=== PATIENT | male | born 1970 | race Caucasian/White ===

== ENCOUNTER → 2016-09-04 | Outpatient (CLI) | payer OTHER ==
[~2016-09-04] MED LIST: 'XANAX1 MG PO; ACETAMINOPHEN-O1 TAB PO; AUGMENTIN 875875 MG PO; CLONAZEPAM1 MG PO; FLUOXETINE HCL40 MG PO; HYDROCODONE BIT1 T11 PO; LOSARTAN POTASS50 M1 PO; PRAVACHOL20 MG PO; ULTRAM50 MG PO
[2016-09-04 10:27] LABS: BUN 9 mg/dl (7-24); CARBON DIOXIDE 31 mmol/L (21-32); CHLORIDE 107 mmol/L (98-107); CHOLESTEROL 190 mg/dL (<200); CPK 163 U/L (39-308); EST GLOM FILT AFRICAN AMERICAN > 60 ml/min; GLUCOSE 79 mg/dL (65-99); HDL CHOLESTEROL 94 mg/dl (40-60); LDL CHOLESTEROL 85 mg/dL (9-159); POTASSIUM 5.3 mmol/L (3.5-5.1); SODIUM 145 mmol/L (136-145); TRIGLYCERIDES 57 mg/dl (<150); VLDL CHOLESTEROL 11 mg/dL (6-40)
== END | disposition home or self-care (01) ==
LOC: LAB 09:31
PROVIDERS: Family Medicine
DX: E78.00 Pure hypercholesterolemia, unspecified (principal)

== ENCOUNTER 2018-03-23 19:07 | Emergency (ER) | payer OTHER ==
[~2018-03-23] VITALS: Ht 185.4 cm; Wt 97.5 kg
[2018-03-23] VITALS (8 sets, daily range): BP systolic 105–152; BP diastolic 46–97
--- NOTE | ~2018-03-23 | EKG ---
[place], [place] ELECTROCARDIOGRAM REPORT NAME: JENNIFFER ARGUELLES UNIT #: [id number] ROOM: DOCTOR: [facility] DRAFT REPORT BIRTHDATE: [birth year] [facility] Test Date: 2018-03-23 Test Time: 19:42:41 Pat Name: JENNIFFER ARGUELLES Department: Room: [facility] Gender: M Hotel Clerk: ROSAMARIA : 1970 Requested By: DEANDRE DESAI Order Number: [id number] Reading MD: Guilherme King MD Measurements Intervals [place] Rate: 84 P: -7 RI: 178 QRS: -25 QRSD: 101 T: 36 QT: 399 QTc: 472 Interpretive Statements Sinus rhythm Probable left atrial enlargement Inferior infarct, old Abnormal T, consider ischemia, anterior leads Electronically Signed On 03-24-2018 16:17:08 PST by Guilherme King MD CM:EKGRPT:ELECTROCARDIOGRAM REPORT [id number] DEANDRE YUEN DRAFT REPORT DEANDRE DESAI DO
[2018-03-23 19:33] LABS: BASO % 0.3 % (0.0-1.0); EOS % 0.7 % (1.0-4.0); HEMATOCRIT 41.5 % (42.0-52.0); HEMOGLOBIN 14.4 g/dl (14.0-18.0); LYMPH # 1.1 10*3/uL (1.3-4.4); LYMPH % 17.4 % (27.0-41.0); MEAN CELL VOLUME 92.6 fl (80.0-94.0); MEAN CORPUSCULAR HGB 32.1 pg (27.0-31.0); MEAN CORPUSCULAR HGB CONC 34.7 g/dl (33.0-37.0); MEAN PLATELET VOLUME 8.8 fl (9.6-12.3); MONO # 0.7 10*3/uL (0.1-1.0); MONO % 12.1 % (3.0-9.0); NEUT # 4.3 10*3/uL (2.3-7.9); NEUT % 69.2 % (47.0-73.0); PLATELET COUNT AUTOMATED 172 10*3/uL (130-400); RED BLOOD COUNT 4.48 10*6/uL (4.50-5.90); RED CELL DISTRI WIDTH 12.6 % (0-14.5); WHITE BLOOD COUNT 6.1 10*3/uL (4.8-10.8)
[2018-03-23 19:50] LABS: ALBUMIN 3.7 gm/dl (3.1-4.5); ALKALINE PHOSPHATASE 54 U/L (45-117); BUN 11 mg/dl (7-24); CHLORIDE 103 mmol/L (98-107); CREATININE 0.99 mg/dL (0.70-1.30); POTASSIUM 3.6 mmol/L (3.5-5.1); SGOT/AST 46 IU/L (3-35); SGPT/ALT 40 U/L (12-78); SODIUM 139 mmol/L (136-145); TOTAL PROTEIN 7.9 gm/dL (6.4-8.2)
[2018-03-23 19:54] LABS: ACETAMINOPHEN (TYLENOL) < 5.0 ug/ml (10-30); ETHYL ALCOHOL < 3.0 mg/dl (<3); TROPONIN I < 0.015 ng/ml (<0.045)
--- NOTE | 2018-03-23 20:00 | NUR ---
PATIENT STATES THAT HE IS UNABLE TO PROVIDE URINE SAMPLE AT THIS TIME
[2018-03-23] MEDS ORDERED: PRAVACHOL40 MG PO (20:51)
[2018-03-23] MEDS ORDERED: ZOLOFT100 MG PO (20:51)
[2018-03-23] MEDS ORDERED: KLONOPIN2 M1 PO (20:52)
--- NOTE | 2018-03-23 21:20 | NUR ---
PATIENT STATES THAT HE STILL IS UNABLE TO PROVIDE A URINE SAMPLE FOR BOTH PHYSICIAN ORDERED DRUG SCREEN AND ALSO WORKERS COMP DRUG SCREEN. HE IS PROVIDED WITH MORE ICE WATER.
--- NOTE | 2018-03-23 21:30 | NUR ---
LUX RN ON 5E NOTIFIED OF PATIENT DELAY TO ROOM D/T INABILITY TO PROVIDE URINE SAMPLE FOR WORKERS COMP DRUG TESTING
--- NOTE | 2018-03-23 22:23 | NUR ---
WITNESSED TONIC CLONIC SEIZURE ACTIVITY
[2018-03-23 22:43] LABS: URINE AMPHETAMINES < 1000 (1000ng/ml); URINE BARBITURATES < 200 (200ng/ml); URINE BENZODIAZEPINES > 200 (200ng/ml); URINE CANNABINOIDS (THC) < 50 (50ng/ml); URINE COCAINE < 300 (300ng/ml); URINE METHADONE < 300 (300ng/ml); URINE OPIATES > 300 (300ng/ml)
[2018-03-23 22:45] LABS: URINE PHENCYCLIDINE < 25 (25ng/ml)
--- NOTE | 2018-03-24 00:40 | NUR ---
PATIENT EXWIFE HERE WITH DAUGHTER TO TAKE THEN PATIENT HOME
== END 2018-03-24 00:51 | disposition home or self-care (01) ==
LOC: ED 19:07 → EDHOLD 20:27 → ED 20:27 → EDHOLD 21:31 → 5E 21:31 → ED 03-24 00:51
PROVIDERS: Student in an Organized Health Care Education/Training Program
DX: R56.9 Unspecified convulsions (principal); R55 Syncope and collapse; F17.200 Nicotine dependence, unspecified, uncomplicated; Z79.899 Other long term (current) drug therapy

== ENCOUNTER → 2018-04-11 | Outpatient (CLI) | payer OTHER ==
[~2018-04-11] MED LIST changes: +KLONOPIN2 M1 PO; +PRAVACHOL40 MG PO; +ZOLOFT100 MG PO
== END | disposition home or self-care (01) ==
LOC: MRI 08:36
DX: R55 Syncope and collapse (principal)

== ENCOUNTER 2019-02-07 14:34 | Inpatient (IN) | payer OTHER ==
[~2019-02-07] VITALS: Ht 185.4 cm; Wt 96.3 kg
[2019-02-07 14:35] VITALS: BP 141/92
--- NOTE | 2019-02-07 14:43 | NUR ---
PATIENT ARRIVED WITH A NECK COLLAR FROM EMS AND IT IS STILL INTACT. THE PT WAS TOLD THAT WE WANT TO LEAVE IT ON UNTIL THE PATIENT IS CLEARED BY RADIOLOGY.
--- NOTE | 2019-02-07 14:55 | NUR ---
PER EMS THE PATIENTS BGM WAS 161.
[2019-02-07 15:17] LABS: BASO % 0.2 % (0.0-1.0); EOS % 0.2 % (1.0-4.0); HEMOGLOBIN 15.2 g/dl (14.0-18.0); LYMPH # 0.5 10*3/uL (1.3-4.4); LYMPH % 7.1 % (27.0-41.0); MEAN CELL VOLUME 93.8 fl (80.0-94.0); MEAN CORPUSCULAR HGB 32.4 pg (27.0-31.0); MEAN CORPUSCULAR HGB CONC 34.5 g/dl (33.0-37.0); MONO # 0.5 10*3/uL (0.1-1.0); MONO % 7.5 % (3.0-9.0); NEUT # 5.4 10*3/uL (2.3-7.9); NEUT % 84.4 % (47.0-73.0); PLATELET COUNT AUTOMATED 132 10*3/uL (130-400); RED BLOOD COUNT 4.69 10*6/uL (4.50-5.90); RED CELL DISTRI WIDTH 12.7 % (0-14.5); WHITE BLOOD COUNT 6.4 10*3/uL (4.8-10.8)
[2019-02-07 15:33] LABS: ALKALINE PHOSPHATASE 52 U/L (45-117); BUN 18 mg/dl (7-24); CHLORIDE 102 mmol/L (98-107); CREATININE 1.41 mg/dL (0.70-1.30); POTASSIUM 3.5 mmol/L (3.5-5.1); SGOT/AST 75 IU/L (3-35); SGPT/ALT 44 U/L (12-78); SODIUM 137 mmol/L (136-145); TOTAL PROTEIN 8.4 gm/dL (6.4-8.2)
[2019-02-07 15:37] LABS: TROPONIN I < 0.015 ng/ml (<0.045)
--- NOTE | 2019-02-07 15:38 | NUR ---
CRITICAL LACTIC ACID AT 3.1. ZOEY ROMAN NOTIFIED.
[2019-02-07 15:44] LABS: ACT PARTIAL THROMBO TIME 25.4 SECONDS (20.0-32.1); INTERNATIONAL NORM RATIO 0.9 (2.0-3.5)
[2019-02-07 15:54] VITALS: BP 144/86
[2019-02-07 18:45] VITALS: BP 148/92
--- NOTE | 2019-02-07 18:45 | NUR ---
A 48, admitted to , under the services of JAYDON Longoria DO with a diagnosis of SYNCOPE WITH COLLAPSE. Chief complaint is COLLAPSED AT WORK. Patient arrived via stretcher from ER. Monitor applied. Initial assessment completed. Vital signs taken and recorded. JAYDON LONGORIA DO notified of admission to the unit. Orders received. See assessment for past medical history, medications and allergies. Patient and/or family oriented to unit. [facility] visitation policy reviewed. Clothing/patient valuable form completed. HADLEY ROY
[2019-02-07 19:15] LABS: BILIRUBIN NEGATIVE (NEGATIVE); BLOOD 2+ (NEGATIVE); CLARITY CLEAR (CLEAR); COLOR YELLOW (YELLOW); GLUCOSE NEGATIVE (NEGATIVE); KETONE NEGATIVE (NEGATIVE); LEUKO ESTERASE NEGATIVE (NEGATIVE); NITRITE NEGATIVE (NEGATIVE); SPECIFIC GRAVITY 1.015 (1.005-1.030); UROBILINOGEN 0.2 E.U./dl (0.2-1.0)
[2019-02-07 19:19] LABS: URINE AMPHETAMINES < 1000 (1000ng/ml); URINE BARBITURATES < 200 (200ng/ml); URINE BENZODIAZEPINES < 200 (200ng/ml); URINE CANNABINOIDS (THC) < 50 (50ng/ml); URINE COCAINE < 300 (300ng/ml); URINE METHADONE < 300 (300ng/ml); URINE OPIATES < 300 (300ng/ml)
--- NOTE | 2019-02-07 19:22 | NUR ---
DR. SCOTT ANSWERING SERVICE NOTIFIED OF CONSULT.
--- NOTE | 2019-02-07 19:24 | NUR ---
PATIENT MEDICATED WITH NORCO FOR C/O HEAD AND NECK PAIN 09/14. WILL CONTINUE TO MONITOR
--- NOTE | 2019-02-07 19:24 | NUR ---
DR. SCOTT AWARE OF CONSULT.
[2019-02-07 19:25] LABS: URINE PHENCYCLIDINE < 25 (25ng/ml)
[2019-02-07 19:27] LABS: MUCOUS 1+
[2019-02-07 20:00] VITALS: BP 143/91
--- NOTE | 2019-02-07 21:10 | NUR ---
INFORMED THAT PATIENT IS REQUESTING NIGHT TIME MED, STATED OK TO CONTINUE. ALSO, INFORMED THAT PATIENT STATED NORCO WAS INEFFECTIVE FOR HEAD/NECK PAIN. STATED HE WILL PLACE AN ORDER.
[2019-02-08] VITALS: BP 117/75
--- NOTE | 2019-02-08 04:00 | NUR ---
Patient resting quietly with no c/o discomfort NOTED . Respirations easy and regular. Vital signs stable. No overt distress. KIRK ALBARRAN
--- NOTE | 2019-02-08 07:46 | NUR ---
IN TO SEE PT, PT C/O PAIN IN HEAD AND NECK THAT HE RATES A 6 ON A PAIN SCALE OF 10, MEDICATED FOR PAIN WITH A SIP OF WATER OTHERWISE PT REMAINS NPO PER DOCTOR ORDER ARMANI SEQUEIRA SPNRCC
[2019-02-08 07:56] LABS: BASO % 0.3 % (0.0-1.0); EOS # 0.1 10*3/uL (0.0-0.4); EOS % 1.4 % (1.0-4.0); HEMATOCRIT 40.5 % (42.0-52.0); HEMOGLOBIN 13.8 g/dl (14.0-18.0); LYMPH # 0.5 10*3/uL (1.3-4.4); LYMPH % 8.1 % (27.0-41.0); MEAN CELL VOLUME 95.7 fl (80.0-94.0); MEAN CORPUSCULAR HGB 32.6 pg (27.0-31.0); MEAN CORPUSCULAR HGB CONC 34.1 g/dl (33.0-37.0); MEAN PLATELET VOLUME 9.4 fl (9.6-12.3); MONO # 0.6 10*3/uL (0.1-1.0); MONO % 9.3 % (3.0-9.0); NEUT # 4.8 10*3/uL (2.3-7.9); NEUT % 80.4 % (47.0-73.0); PLATELET COUNT AUTOMATED 119 10*3/uL (130-400); RED BLOOD COUNT 4.23 10*6/uL (4.50-5.90); RED CELL DISTRI WIDTH 12.6 % (0-14.5); WHITE BLOOD COUNT 5.9 10*3/uL (4.8-10.8)
[2019-02-08 07:58] LABS: ALBUMIN 3.3 gm/dl (3.1-4.5); ALKALINE PHOSPHATASE 49 U/L (45-117); BUN 10 mg/dl (7-24); CHLORIDE 107 mmol/L (98-107); CHOLESTEROL 187 mg/dL (<200); CREATININE 0.71 mg/dL (0.70-1.30); HDL CHOLESTEROL 87 mg/dl (40-60); LDL CHOLESTEROL 83 mg/dL (9-159); PHOSPHOROUS 3.2 mg/dL (2.5-4.9); POTASSIUM 3.6 mmol/L (3.5-5.1); SGOT/AST 52 IU/L (3-35); SGPT/ALT 41 U/L (12-78); SODIUM 140 mmol/L (136-145); TOTAL PROTEIN 7.2 gm/dL (6.4-8.2); TRIGLYCERIDES 85 mg/dl (<150); VLDL CHOLESTEROL 17 mg/dL (6-40)
[2019-02-08 08:00] VITALS: BP 130/92
--- NOTE | 2019-02-08 08:45 | NUR ---
PT SAYS HE TAKES STRONGER PAIN MEDICATION AT HOME, ASKED AND TOLD TO MEDICATE WITH TYLENOL. ARMANI CONN
--- NOTE | 2019-02-08 09:00 | NUR ---
Overnight Babysitter in to talk to patient. Patient states lives at home with alone. There are few steps in the home. Physician: nataly Pharmacy: [facility]: none Patient's level of ADLs: INDEPENDENT Patient has working utilities: all working DME: none Follow-up physician's appointment after d/c: will be made by hospitalist nurse director upon discharge Does patient want to access PORTAL?: no Discharge plan discussed with patient, he lives at home alone, he is independent in adls and ambulation, works, drives, he states he will return home when medically stable and denies any home needs, he stated he will have a family member or friend pick him up when discharged, case management will follow. ELMER DOHERTY
--- NOTE | 2019-02-08 09:19 | NUR ---
ADDITIONAL TYLENOL GIVEN FOR UNRELIEVED PAIN. ARMANI SEQUEIRA SPNRCC
--- NOTE | 2019-02-08 10:18 | NUR ---
PT SAYS PAIN IS SOMEWHAT BETTER AFTER TYLENOL WAS GIVEN. ARMANI SEQUEIRA SPNRCC
[2019-02-08 12:00] VITALS: BP 137/84
--- NOTE | 2019-02-08 12:00 | NUR ---
PERCOCET ADMINISTERED FOR PAIN, PT RATES PAIN A 6 ON A SCALE OF 0 TO 10. ARMANI CONN
--- NOTE | 2019-02-08 12:07 | NUR ---
PT REMAINS MPO FOR STRESS TEST ARMANI SEQUEIRA SPNRCC
--- NOTE | 2019-02-08 13:07 | NUR ---
MEDICATED WITH PERCOCET FOR C/O PAIN IN THE BACK OF HEAD, PT RATES PAIN A 6 ON A PAIN SCALE OF 10 ARMANI REESECC
--- NOTE | 2019-02-08 13:33 | NUR ---
PERCOCET STARTING TO RELIEVE PAIN PER PT ARMANI SEQUEIRA SPNRCC
[2019-02-08 16:00] VITALS: BP 125/74
--- NOTE | 2019-02-08 19:51 | NUR ---
PT REQUESTING PRM PAIN MEDS. PT STATES THAST HIS PAIN IS A 8/10 IN HIS NECK. PRN OXYCODONE PO IS GIVEN AT THIS TIME.
[2019-02-08 20:00] VITALS: BP 131/80
--- NOTE | 2019-02-08 20:35 | NUR ---
PT RE-EVALUATED AT THIS TIME AND STATES THAT HIS PAIN IS A LITTLE BETTER RATING IT A 6/10 AT THIS TIME. WILL CONITNUE TO MONITOR THE PATIENT.
--- NOTE | 2019-02-08 20:45 | NUR ---
SUZI HUGO CALLED AT THIS TIME BECAUSE PT REQUESTING DIFFERENT MEDICATION TO BE GIVEN AT NIGHT STATES THAT KLONPOIN 2MG DID NOT WORK LAST NIGHT. DR HUGO WILL ADD NEW ORDER
--- NOTE | 2019-02-08 21:07 | NUR ---
PT IS REQUESTING SOMETHING TO HELP HIM SLEEP. RESTORIL PO IS GIVEN AT THIS TIME. WILL CONTINUE TO MONITOR THE PATIENT. CALL LIGHT WITHIN REACH.
--- NOTE | 2019-02-08 22:01 | NUR ---
PT RE-EVALUATED AT THIS TIME AND IS SLEEPING. WILL CONTINUE TO MONITOR THE PATIENT.
[2019-02-09] VITALS: BP 149/90
--- NOTE | 2019-02-09 02:42 | NUR ---
24 HR chart check completed.
--- NOTE | 2019-02-09 04:01 | NUR ---
Patient sleeping. Respirations relaxed and easy. [place] on, call light within reach. ANA THAO
--- NOTE | 2019-02-09 09:00 | NUR ---
case management visits with patient, he will be having a stress test today and cardiology will evaluate for other treatment after the stress test. patient will have not needs at home, case management will follow
--- NOTE | 2019-02-09 10:00 | NUR ---
INFORMED CONSENT OBTAINED FOR EXERCISE CARDIOLITE STRESS TEST WITH DR. GRANDE. RESTING EKG NSR WITH A SUPINR HR OF 71 WITH BP OF 132/90 AND HR OF 76 WITH BP OF 118/78 IN STANDING POSITION. PT COMPLETED 5:25 OF A WILIAM PROTOCOL WITH COMPLETION OF 2:25 OF STAGE II AT 2.5 MPH AND 12% GRADE. TEST TERMINATED BECAUSE OF FATIGUE AND SHORTNESS OF BREATH. REACHED A PEAK HR OF 162 WHICH IS 94% OF PREDICTED MAX AND A PEAK BP OF 178/58. HAD NO CHEST PAIN OR ANY ST CHANGES. AT PEAK HR DID DEVELOP FREQUENT PVC'S THAT SUBSIDED EARLY IN RECOVERY. HAS A FAIR EXERCISE TOLERANCE. LAST RECOVERY HR OF 86 WITH BP OF 132/88. TO NUCLEAR MEDICINE IN STABLE CONDITION FOR SCANNING.
[2019-02-09 12:00] VITALS: BP 136/83
[2019-02-09] MEDS ORDERED: VITAMIN D5000 UNI1 PO (14:24)
[2019-02-09] MEDS ORDERED: Percocet 325 MG1 TAB PO (14:28)
[2019-02-09] MEDS ORDERED: KLONOPIN2 M1 PO (14:28)
--- NOTE | 2019-02-09 15:17 | NUR ---
Discharge instructions reviewed with patient/family. Patient receptive and verbalizes understanding. Follow-up care arranged. Written instructions given to patient/family. TAVIA ADAM
== END 2019-02-09 15:10 | disposition home or self-care (01) | DRG 640 ==
LOC: ED 14:34 → 4E 17:05 → EDHOLD 17:05 → 4E 17:42
PROVIDERS: Family Medicine; Physician Assistant; ADMIT Family Medicine
DX: E86.0 Dehydration (principal); N17.0 Acute kidney failure with tubular necrosis; F13.230 Sedative, hypnotic or anxiolytic dependence with withdrawal, uncomplicated; E87.2 Acidosis; I10 Essential (primary) hypertension; S00.93XA Contusion of unspecified part of head, initial encounter; D72.9 Disorder of white blood cells, unspecified; R73.9 Hyperglycemia, unspecified; E83.42 Hypomagnesemia; R74.0 Nonspecific elevation of levels of transaminase and lactic acid dehydrogenase [LDH]; E78.5 Hyperlipidemia, unspecified; M50.30 Other cervical disc degeneration, unspecified cervical region; F41.1 Generalized anxiety disorder; F32.9 Major depressive disorder, single episode, unspecified; Z83.3 Family history of diabetes mellitus; Z79.899 Other long term (current) drug therapy

== ENCOUNTER → 2020-01-26 | Outpatient (CLI) | payer OTHER ==
[~2020-01-26] MED LIST changes: +Percocet 325 MG1 TAB PO; +VITAMIN D5000 UNI1 PO
== END | disposition home or self-care (01) ==
LOC: COVID19 08:04
PROVIDERS: ATTEND Internal Medicine
DX: U07.1 COVID-19 (principal)

== ENCOUNTER 2023-11-09 09:02 | Inpatient (IN) | payer OTHER ==
[~2023-11-09] VITALS: Ht 185.4 cm; Wt 96.0 kg
[2023-11-09 09:09] VITALS: BP 106/69
[2023-11-09] MEDS ORDERED: SODIUM CHLORIDE 0.9% 100 ML IV ONE (09:46)
[2023-11-09] MEDS ORDERED: IOHEXOL 350 MG/ML 100 ML VIAL IV ONE ×2 (09:46→10:10)
[2023-11-09 10:09] LABS: HEMATOCRIT 45.9 % (42.0-52.0); MANUAL DIFF REFLEX YES; MEAN CELL VOLUME 92.2 fl (80.0-94.0); MEAN CORPUSCULAR HGB 32.1 pg (27.0-31.0); MEAN CORPUSCULAR HGB CONC 34.9 g/dl (33.0-37.0); MEAN PLATELET VOLUME 8.9 fl (9.6-12.3); PLATELET COUNT AUTOMATED 197 10*3/uL (130-400); RED BLOOD COUNT 4.98 10*6/uL (4.50-5.90); RED CELL DISTRI WIDTH 12.8 % (0-14.5); WHITE BLOOD COUNT 17.8 10*3/uL (4.8-10.8)
[2023-11-09] MEDS ORDERED: SODIUM CHLORIDE 0.9% 100 ML BAG IV ONE (10:10)
[2023-11-09 10:27] LABS: ACT PARTIAL THROMBO TIME 26.8 SECONDS (20.0-32.1)
[2023-11-09 10:38] LABS: PLATELET SUFFICIENCY NORMAL (NORMAL); TOTAL CELLS COUNTED 100 #CELLS
[2023-11-09 10:55] VITALS: BP 129/92
[2023-11-09] MEDS ORDERED: MAGNESIUM OXIDE 400 MG TAB PO ONE (11:10)
[2023-11-09 12:11] LABS: BILIRUBIN Negative (Negative); BLOOD 2+ (Negative); CLARITY Clear (Clear); COLOR Yellow (Yellow); GLUCOSE Negative (Negative); KETONE 1+ (Negative); LEUKO ESTERASE Negative (Negative); NITRITE Negative (Negative); SPECIFIC GRAVITY >= 1.030 (1.001-1.030); UROBILINOGEN 0.2 E.U./dl (0.0-1.0)
[2023-11-09 12:19] LABS: URINE AMPHETAMINES Negative (1000ng/ml); URINE BARBITURATES Negative (200ng/ml); URINE BENZODIAZEPINES Negative (200ng/ml); URINE CANNABINOIDS (THC) Negative (50ng/ml); URINE COCAINE Negative (300ng/ml); URINE METHADONE Negative (300ng/ml); URINE OPIATES Negative (300ng/ml); URINE PHENCYCLIDINE Negative (25ng/ml)
[2023-11-09 12:30] LABS: BACTERIA 1+
[2023-11-09 12:37] LABS: ALKALINE PHOSPHATASE 53 U/L (46-116); BUN 8 mg/dl (9-23); CHLORIDE 103 mmol/L (98-107); POTASSIUM 4.2 mmol/L (3.4-5.1); SGPT/ALT 21 U/L (5-49); TOTAL PROTEIN 7.4 gm/dL (6.0-8.0)
[2023-11-09 12:39] VITALS: BP 135/87
[2023-11-09] MEDS ORDERED: GADOTERATE MEGLUMINE 10 MMOL/20 ML VIAL IV ONE (13:49)
[2023-11-09 15:06] VITALS: BP 145/94
[2023-11-09] MEDS ORDERED: LORazepam 2 MG/ML VIAL IV ONE ×4 (15:15→23:55)
[2023-11-09] MEDS ORDERED: ACETAMINOPHEN 325 MG TAB PO ONE (17:40)
[2023-11-09] MEDS ORDERED: LORazepam 2 MG TAB PO ONE (17:40)
[2023-11-09] MEDS ORDERED: IBUPROFEN 400 MG TAB PO ONE (17:40)
[2023-11-09] MEDS ORDERED: ASPIRIN 325 MG TAB PO ONE (19:10)
[2023-11-09] MEDS ORDERED: HEPARIN SODIUM 250 ML IV SCH (19:15)
[2023-11-09 20:19] VITALS: BP 122/65
[2023-11-09] MEDS ORDERED: Ondansetron Hydrochloride 4 MG/2 ML VIAL IV ONE (20:25)
[2023-11-09] MEDS ORDERED: HYDROmorphONE Hydrochloride 0.5 MG/0.5 ML SYRINGE IV ONE ×2 (20:25→23:55)
[2023-11-09] MEDS ORDERED: LEVETIRACETAM 500 MG TAB PO SCH (22:00)
[2023-11-10] VITALS (8 sets, daily range): BP systolic 109–128; BP diastolic 50–89
[2023-11-10] MEDS ORDERED: LORazepam 2 MG/ML VIAL IV ONE (02:20)
[2023-11-10] MEDS ORDERED: HYDROmorphONE Hydrochloride 0.5 MG/0.5 ML SYRINGE IV ONE (02:20)
[2023-11-10] MEDS ORDERED: LORazepam 2 MG TAB PO ONE (07:55)
[2023-11-10] MEDS ORDERED: LORazepam 1 MG TAB PO SCH (08:00)
[2023-11-10] MEDS ORDERED: LORazepam 1 MG TAB PO PRN ×2 (08:20→11:30)
[2023-11-10 09:45] LABS: BASO % 0.4 % (0.0-1.0); EOS # 0.1 10*3/uL (0.0-0.4); EOS % 1.2 % (1.0-4.0); HEMATOCRIT 42.3 % (42.0-52.0); LYMPH # 0.9 10*3/uL (1.3-4.4); LYMPH % 10.1 % (27.0-41.0); MEAN CELL VOLUME 92.4 fl (80.0-94.0); MEAN CORPUSCULAR HGB 32.1 pg (27.0-31.0); MEAN CORPUSCULAR HGB CONC 34.8 g/dl (33.0-37.0); MEAN PLATELET VOLUME 8.9 fl (9.6-12.3); MONO # 0.8 10*3/uL (0.1-1.0); MONO % 9.8 % (3.0-9.0); NEUT # 6.6 10*3/uL (2.3-7.9); NEUT % 78.1 % (47.0-73.0); PLATELET COUNT AUTOMATED 170 10*3/uL (130-400); RED BLOOD COUNT 4.58 10*6/uL (4.50-5.90); WHITE BLOOD COUNT 8.5 10*3/uL (4.8-10.8)
[2023-11-10 10:05] LABS: BUN 7 mg/dl (9-23); CHLORIDE 104 mmol/L (98-107); POTASSIUM 3.5 mmol/L (3.4-5.1)
[2023-11-10] MEDS ORDERED: HEPARIN SODIUM 250 ML IV SCH (11:30)
[2023-11-10] MEDS ORDERED: ACETAMINOPHEN 500 MG TAB PO PRN (12:00)
[2023-11-10] MEDS ORDERED: ACETAMINOPHEN 325 MG TAB PO ONE (12:15)
[2023-11-11] VITALS (9 sets, daily range): BP systolic 103–129; BP diastolic 71–88
[2023-11-11] MEDS ORDERED: HEPARIN SODIUM 250 ML IV ONE (12:40)
[2023-11-11] MEDS ORDERED: Water, Sterile 10 ML VIAL IV PRN (14:05)
[2023-11-11] MEDS ORDERED: METHOCARBAMOL 750 MG TAB PO PRN (14:05)
[2023-11-11] MEDS ORDERED: ACETAMINOPHEN 325 MG TAB PO PRN (14:05)
[2023-11-11] MEDS ORDERED: MULTIVITAMIN CONCENTRATE (IV) 10 ML,Thiamine 100 MG,FOLIC ACID 1 MG in SODIUM CHLORIDE ... IV ONE (14:05)
[2023-11-11] MEDS ORDERED: BISACODYL 10 MG SUPP R PRN (14:05)
[2023-11-11] MEDS ORDERED: Dicyclomine Hydrochloride 20 MG TAB PO PRN (14:05)
[2023-11-11] MEDS ORDERED: LORazepam 2 MG/ML VIAL IV PRN (14:05)
[2023-11-11] MEDS ORDERED: BISACODYL 5 MG TAB PO PRN (14:05)
[2023-11-11] MEDS ORDERED: HEPARIN SODIUM 250 ML IV SCH (14:05)
[2023-11-11] MEDS ORDERED: hydrOXYzine 50 MG CAP PO PRN (14:05)
[2023-11-11] MEDS ORDERED: Ondansetron Hydrochloride 4 MG/2 ML VIAL IV PRN (14:05)
[2023-11-11] MEDS ORDERED: LORazepam 1 MG TAB PO SCH (16:00)
[2023-11-11] MEDS ORDERED: Acetaminophen/Oxycodone 5 MG/325 MG TABLET PO PRN (16:25)
[2023-11-11] MEDS ORDERED: ATORVASTATIN CALCIUM 20 MG TAB PO SCH (22:00)
[2023-11-11] MEDS ORDERED: LEVETIRACETAM 500 MG TAB PO SCH (22:00)
[2023-11-12 05:41] LABS: VITAMIN D, 25-HYDROXY 14.3 ng/mL (30-100)
[2023-11-12 05:42] LABS: ALKALINE PHOSPHATASE 36 U/L (46-116); CHLORIDE 105 mmol/L (98-107); CHOLESTEROL 161 mg/dL (<200); FREE T4 1.36 ng/dl (0.89-1.76); LDL CHOLESTEROL 74 mg/dL (9-159); POTASSIUM 3.5 mmol/L (3.4-5.1); SGPT/ALT 34 U/L (5-49); TOTAL PROTEIN 6.3 gm/dL (6.0-8.0); TRIGLYCERIDES 56 mg/dl (<150)
[2023-11-12 05:43] LABS: BUN < 5 mg/dl (9-23)
[2023-11-12 06:01] LABS: BASO % 0.7 % (0.0-1.0); EOS # 0.4 10*3/uL (0.0-0.4); EOS % 6.7 % (1.0-4.0); HEMATOCRIT 40.2 % (42.0-52.0); LYMPH % 17.2 % (27.0-41.0); MEAN CELL VOLUME 94.4 fl (80.0-94.0); MEAN CORPUSCULAR HGB 31.7 pg (27.0-31.0); MEAN CORPUSCULAR HGB CONC 33.6 g/dl (33.0-37.0); MEAN PLATELET VOLUME 9.6 fl (9.6-12.3); MONO # 0.7 10*3/uL (0.1-1.0); MONO % 11.5 % (3.0-9.0); NEUT # 3.6 10*3/uL (2.3-7.9); NEUT % 63.5 % (47.0-73.0); PLATELET COUNT AUTOMATED 150 10*3/uL (130-400); RED BLOOD COUNT 4.26 10*6/uL (4.50-5.90); RED CELL DISTRI WIDTH 12.6 % (0-14.5); WHITE BLOOD COUNT 5.7 10*3/uL (4.8-10.8)
[2023-11-12 08:00] VITALS: BP 133/84
[2023-11-12] MEDS ORDERED: Cholecalciferol 2,000 UNIT TABLET (50 MCG) PO SCH (10:00)
[2023-11-12] MEDS ORDERED: ASPIRIN ENTERIC COATED 81 MG TAB PO SCH (10:00)
[2023-11-12] MEDS ORDERED: MULTIVITAMIN 1 TAB TAB PO SCH (10:00)
[2023-11-12] MEDS ORDERED: FOLIC ACID 1 MG TAB PO SCH (10:00)
[2023-11-12] MEDS ORDERED: Losartan Potassium 25 MG TAB PO SCH (10:00)
[2023-11-12] MEDS ORDERED: Thiamine 100 MG TAB PO SCH (10:00)
[2023-11-12] MEDS ORDERED: METOPROLOL SUCCINATE XR 25 MG TAB PO SCH (10:00)
[2023-11-12] MEDS ORDERED: METOPROLOL SUCC25 M2 PO (10:38)
[2023-11-12] MEDS ORDERED: LIPITOR40 MG PO (10:38)
[2023-11-12] MEDS ORDERED: LOSARTAN POTASS25 M1 PO (10:38)
[2023-11-12] MEDS ORDERED: NATURE'S BLEND100 M2 PO (10:38)
[2023-11-12] MEDS ORDERED: NATURE'S BLEND F1 MG PO (10:38)
[2023-11-12] MEDS ORDERED: ASPIRIN ADULT L81 M2 PO (10:38)
[2023-11-12] MEDS ORDERED: LEVETIRACETAM500 MG PO (10:38)
[2023-11-12] MEDS ORDERED: VITAMIN D350 MCG PO (10:38)
[2023-11-12 12:00] VITALS: BP 130/89
[2023-11-12] MEDS ORDERED: LORazepam 1 MG TAB PO SCH (18:00)
[2023-11-13] MEDS ORDERED: LORazepam 1 MG TAB PO PRN
== END 2023-11-12 14:41 | disposition short-term general hospital (02) | DRG 281 ==
LOC: ED 09:02 → EDHOLD 11-11 13:36 → 4E 11-11 13:36 → EDHOLD 11-11 13:39 → 4E 11-11 22:04
PROVIDERS: Emergency Medicine; Internal Medicine; ADMIT Student in an Organized Health Care Education/Training Program; ATTEND Student in an Organized Health Care Education/Training Program
DX: I21.4 Non-ST elevation (NSTEMI) myocardial infarction (principal); F10.939 Alcohol use, unspecified with withdrawal, unspecified; F41.1 Generalized anxiety disorder; I10 Essential (primary) hypertension; M10.9 Gout, unspecified; F32.9 Major depressive disorder, single episode, unspecified; M54.12 Radiculopathy, cervical region; R73.9 Hyperglycemia, unspecified; E78.2 Mixed hyperlipidemia; E83.42 Hypomagnesemia

== ENCOUNTER → 2023-12-20 | Outpatient (CLI) | payer OTHER ==
[~2023-12-20] MED LIST changes: +ASPIRIN ADULT L81 M2 PO; +LEVETIRACETAM500 MG PO; +LIPITOR40 MG PO; +LOSARTAN POTASS25 M1 PO; +METOPROLOL SUCC25 M2 PO; +NATURE'S BLEND F1 MG PO; +NATURE'S BLEND100 M2 PO; +VITAMIN D350 MCG PO
== END | disposition home or self-care (01) ==
LOC: RAD 01:58 → ORTHO 15:07 → RAD 15:40
PROVIDERS: ATTEND Orthopaedic Surgery
DX: M19.012 Primary osteoarthritis, left shoulder (principal)

== ENCOUNTER → 2024-09-05 | Outpatient (CLI) | payer OTHER ==
[~2024-09-05] MED LIST changes: +ALBUTEROL AER HFA INH; +BUMETANIDE0.5 MG PO; +CARVEDILOL3.125 MG PO; +CIPROFLOXACIN500 M4 PO; +MUCINEX DM 30/61 TAB PO; +POTASSIUM CHLO10 ME4 PO; +ROSUVASTATIN CA10 MG PO; +TRAZODONE150 MG PO
== END | disposition home or self-care (01) ==
LOC: RESCLI 02:42
PROVIDERS: ATTEND Student in an Organized Health Care Education/Training Program
DX: A49.8 Other bacterial infections of unspecified site (principal); F41.9 Anxiety disorder, unspecified; D86.9 Sarcoidosis, unspecified; E78.5 Hyperlipidemia, unspecified; Z79.899 Other long term (current) drug therapy; Z79.82 Long term (current) use of aspirin; Z98.890 Other specified postprocedural states; Z88.8 Allergy status to other drugs, medicaments and biological substances

== ENCOUNTER → 2024-10-26 | Day surgery (SDC) | payer OTHER ==
[~2024-10-26] VITALS: Ht 185.4 cm; Wt 95.3 kg
[~2024-10-26] MED LIST changes: +Albuterol Sulf/Ipratropium 3 ML VIAL NEB ONE; +Albuterol Sulfate 2.5 MG/0.5 ML VIAL NEB ONE; +Lidocaine Hydrochloride 2% 5 ML SDV IV ONE; +Lidocaine Hydrochloride 4% 5 ML AMP NEB ONE; +Lidocaine Hydrochloride 4% 5 ML AMP ONE; +Midazolam Hydrochloride 2 MG/2 ML VIAL IV SCH; +Midazolam Hydrochloride 2 MG/2 ML VIAL ONE; +PROPOFOL 200 MG/20 ML VIAL IV ONE; +SODIUM CHLORIDE 0.9% 1,000 ML IV ONE
[2024-10-26 08:08] VITALS: BP 146/90
[2024-10-26 10:07] VITALS: BP 130/73
[2024-10-26 10:22] VITALS: BP 113/72
[2024-10-26 10:32] VITALS: BP 114/75
[2024-10-27 13:07] LABS: ACID FAST SPEC PROCESSING Concentration (.)
== END | disposition home or self-care (01) ==
LOC: SDC 10-24 04:12
PROVIDERS: ATTEND Internal Medicine Critical Care Medicine
DX: R06.00 Dyspnea, unspecified (principal); J18.9 Pneumonia, unspecified organism; I25.10 Atherosclerotic heart disease of native coronary artery without angina pectoris; I50.9 Heart failure, unspecified; M50.323 Other cervical disc degeneration at C6-C7 level; F41.1 Generalized anxiety disorder; E78.5 Hyperlipidemia, unspecified; Z88.8 Allergy status to other drugs, medicaments and biological substances; Z98.890 Other specified postprocedural states

== ENCOUNTER → 2025-01-15 | Outpatient (CLI) | payer OTHER ==
[~2025-01-15] MED LIST changes: -Albuterol Sulf/Ipratropium 3 ML VIAL NEB ONE; -Albuterol Sulfate 2.5 MG/0.5 ML VIAL NEB ONE; -Lidocaine Hydrochloride 2% 5 ML SDV IV ONE; -Lidocaine Hydrochloride 4% 5 ML AMP NEB ONE; -Lidocaine Hydrochloride 4% 5 ML AMP ONE; -Midazolam Hydrochloride 2 MG/2 ML VIAL IV SCH; -Midazolam Hydrochloride 2 MG/2 ML VIAL ONE; -PROPOFOL 200 MG/20 ML VIAL IV ONE; -SODIUM CHLORIDE 0.9% 1,000 ML IV ONE
== END | disposition home or self-care (01) ==
LOC: CT 01:13
PROVIDERS: ATTEND Internal Medicine Critical Care Medicine
DX: J45.40 Moderate persistent asthma, uncomplicated (principal); J98.4 Other disorders of lung; R59.0 Localized enlarged lymph nodes; J85.1 Abscess of lung with pneumonia; K76.0 Fatty (change of) liver, not elsewhere classified